=== PATIENT | female | born 1970 | race American Indian/Alaskan Native ===

== ENCOUNTER 2016-04-21 07:56 | Emergency (ER) | payer OTHER ==
[2016-04-21 08:50] VITALS: BP 123/68
--- NOTE | 2016-04-21 09:36 | Emergency Department Report ---
Upper Extremity - HPI Chief Complaint: Shoulder Injury Stated Complaint: RT SHOULDER/NECK/PAIN Time Seen by Provider: 04/21/16 09:09 Upper Extremity: Right Shoulder (right side of neck pain radiating to right shoulder) Occurred When: 3 Days Mechanism: Unsure Severity: moderate Symptoms: Yes Pain with Movement (right shoulder and neck), Yes Limited Range of Movement (right shoulder), No Deformity, No Numbness, No Weakness, No Swelling, No Bruising/Ecchymosis, No Laceration or Abrasion Other History: Patient here complaining that she is having right-sided neck pain radiating down to her right shoulder 3 days. He denies any injury. Reports pain and feels sharp and 6 out of 10. Denies any history of neck injury or shoulder injury. She said she carries heavy objects at work some time but she uses both hands. Denies any fever or chills. Denies any redness or swelling. ED Review of Systems ROS: Stated complaint: RT SHOULDER/NECK/PAIN Other details as noted in HPI Comment: All other systems reviewed and negative Constitutional: denies: chills, fever Respiratory: no symptoms reported Cardiovascular: denies: chest pain, palpitations, edema, syncope Gastrointestinal: denies: abdominal pain, nausea, vomiting Musculoskeletal: arthralgia. denies: back pain Skin: denies: rash Neurological: denies: headache, weakness, numbness, paresthesias, abnormal gait , vertigo ED Past Medical Hx - Past Medical History Previous Medical History?: Yes Hx Headaches / Migraines: Yes Hx Asthma: Yes (CHILD) - Surgical History Past Surgical History?: Yes Additional Surgical History: tubal ligation. FIBROIDS REMOVED - Family History Family history: hypertension - Social History Smoking Status: Never Smoker Substance Use Type: Alcohol - Medications Home Medications: Home Medications Medication Instructions Recorded Confirmed Last Taken Type SUMAtriptan SUCCINATE [Imitrex] 50 mg PO BID PRN 04/21/16 04/21/16 Unknown History traMADol [Ultram] 50 mg PO Q8HR PRN #15 tablet 04/21/16 Unknown Rx Upper Extremity Exam - Exam General: Vital signs noted. No distress. Alert and acting appropriately. 45-year-old female well-nourished well-developed in no acute distress. Neck: Full range of motion, she is able to use her chin to touch her chest without any difficulties. She is able to move her neck from side to side. Positive C-spine tenderness to touch. Head and Torso: No HEENT Abnormality, No Neck Tenderness, No Chest/Lungs Abnormality, No Abdominal Tenderness, No Back Tenderness Shoulder Exam: Yes Shoulder Tenderness (right glenohumeral), No Clavicle Tenderness, No Normal Range of Motion in Shoulder (she is able to raise her arms above her head but she said it's painful in her shoulder on the right side. ), No Shoulder Deformity, No AC Joint Tenderness Arm Exam: No Arm/Humerus Tenderness, No Arm Deformity Elbow: Yes Normal Range of Motion in Elbow, No Elbow Tenderness, No Elbow Deformity Forearm: No Forearm Tenderness, No Forearm Deformity, No Pain with Pronation, No Pain with Supination Wrist: Yes Normal ROM in Wrist, No Wrist Tenderness, No Wrist Deformity, No Snuffbox Tenderness, No Pain with Axial Thumb Compression Hand: Yes Normal ROM in Digit(s), No Hand Tenderness, No Hand Deformity, No Digit Tenderness, No Digit(s) Deformity, No Tendon Dysfunction CMS Exam: Yes Normal Distal Pulses, Yes Normal Capillary Refill, Yes Normal Distal Sensation, No Broken Skin ED Course Vital Signs 04/21/16 08:35 Temperature 98.3 F Pulse Rate 79 Respiratory 17 Rate Blood Pressure 123/68 O2 Sat by Pulse 98 Oximetry - Reevaluation(s) Reevaluation #1: 04/21/16 11:30 Patient given Toradol 60 mg IM and emergency room for relief of pain. ED Medical Decision Making - Radiology Data Radiology results: report reviewed X-ray of C-spine and right shoulder revealed no abnormalities. - Medical Decision Making ED course: Patient given Toradol 60 mg IM and emergency room for neck and shoulder pain. Pain relieved. I discussed her x-ray results with her and there were no abnormalities seen on x-rays. Discussed with patient if she continues to have pain she is to follow-up with orthopedic doctor. Discharge instructions given on arthralgia and neck muscle strain. She was discharged home in stable condition with prescription for Ultram. Critical care attestation.: If time is entered above; I have spent that time in minutes in the direct care of this critically ill patient, excluding procedure time. ED Disposition Clinical Impression: Arthralgia of right shoulder region Strain of neck muscle Qualifiers: Encounter type: initial encounter Qualified Code(s): S16.1XXA - Strain of muscle, fascia and tendon at neck level, initial encounter Disposition: DISCHARGED TO HOME OR SELFCARE Is pt being admited?: No Does the pt Need Aspirin: No Condition: Stable Instructions: Muscle Strain (ED), Arthralgia (ED) Additional Instructions: Please rest for at least 2 days. Follow-up with orthopedic doctor if you continue to have pain. Take medication as prescribed. Ultram can cause drowsiness so please be careful with driving and having operating heavy machinery. Prescriptions: traMADol [Ultram] 50 mg PO Q8HR PRN #15 tablet PRN Reason: Pain Referrals: LINN DUMONT MD [Staff Physician] - 04/26/16 Forms: Work/School Release Form(ED)
[2016-04-21] MEDS ORDERED: TORADOL IM ONE (09:38)
--- NOTE | 2016-04-21 10:25 | XRay Report ---
RIGHT SHOULDER RADIOGRAPHS INDICATION: Radiculopathy. COMPARISON: None similar. FINDINGS: Frontal and Y views of the right shoulder, 4 projections demonstrate normal humeral head contour, well positioned against the glenoid. Normal acromioclavicular joint. Preserved scapular contour. Normal visualized soft tissues, right ribs and lung. CONCLUSION: No acute right shoulder radiographic abnormality, as described. Thank you for the opportunity to participate in this patient's care.
--- NOTE | 2016-04-21 10:45 | XRay Report ---
CERVICAL SPINE RADIOGRAPHS INDICATION: Radiculopathy. COMPARISON: None similar. FINDINGS: AP, lateral, swimmer's and open-mouth views of the cervical spine, demonstrate unremarkable dens and symmetric lateral masses. Intact craniocervical articulation on the lateral view with visualization up to C7 with C7-T1 disc faintly seen due to shoulder soft tissues. Motion on swimmer's view. Normal predental space and prevertebral soft tissues. Normal vertebral body stature and alignment. Relatively preserved disc heights. Clear visualized lung apices. Few radiopaque dental fillings. CONCLUSION: No acute cervical spine radiographic abnormality. Please correlate. Thank you for the opportunity to participate in this patient's care.
== END 2016-04-21 11:49 | disposition home or self-care (01) ==
LOC: ED 07:56
DX: S16.1XXA Strain of muscle, fascia and tendon at neck level, initial encounter (principal); M25.511 Pain in right shoulder; G43.909 Migraine, unspecified, not intractable, without status migrainosus; J45.909 Unspecified asthma, uncomplicated; Z98.51 Tubal ligation status; X58.XXXA Exposure to other specified factors, initial encounter; Y93.89 Activity, other specified; Y99.9 Unspecified external cause status; Y92.89 Other specified places as the place of occurrence of the external cause
CPT/HCPCS: 72040; 73030; 96372; 99283; J1885

== ENCOUNTER 2016-07-24 01:19 | Emergency (ER) | payer OTHER ==
[2016-07-24 03:04] LABS: Basophils % (Auto) 0.5 % (0.0-1.8); Eosinophils % (Auto) 0.1 % (0.0-4.3); Hematocrit 45.3 % (30.3-42.9); Hemoglobin 14.6 gm/dl (10.1-14.3); Mean Corpuscular HGB Conc 32 % (30-34); Mean Corpuscular Volume 80 fl (79-97); Platelet Count 309 K/mm3 (140-440); Red Blood Count 5.68 M/mm3 (3.65-5.03); Red Cell Distribution Width 14.6 % (13.2-15.2); White Blood Count 15.9 K/mm3 (4.5-11.0)
[2016-07-24 03:05] LABS: Mean Corpuscular Hemoglobin 26 pg (28-32)
[2016-07-24 03:19] LABS: Alanine Aminotransferase 16 units/L (7-56); Albumin 3.7 g/dL (3.9-5); Albumin/Globulin Ratio 1.2 %; Alkaline Phosphatase 66 units/L (35-129); Anion Gap 20 mmol/L; BUN/Creatinine Ratio 15.71; Bilirubin,Total 0.6 mg/dL (0.1-1.2); Blood Urea Nitrogen 11 mg/dL (7-17); Calcium 9.1 mg/dL (8.4-10.2); Carbon Dioxide 23 mmol/L (22-30); Chloride 99.3 mmol/L (98-107); Glucose 188 mg/dL (65-100); Lipase 20 units/L (13-60); Potassium 3.6 mmol/L (3.6-5.0); Sodium 139 mmol/L (137-145); Total Protein 6.8 g/dL (6.3-8.2)
[2016-07-24] MEDS ORDERED: TYLENOL PO ONE (03:58)
[2016-07-24 05:30] VITALS: BP 136/86
== END 2016-07-24 07:15 | disposition left against medical advice (07) ==
LOC: ED 01:19
DX: R06.02 Shortness of breath (principal); R11.10 Vomiting, unspecified; R10.9 Unspecified abdominal pain; Z53.21 Procedure and treatment not carried out due to patient leaving prior to being seen by health care provider
CPT/HCPCS: 36415; 80053; 83690; 85025